=== PATIENT | male | born 1970 | race Caucasian/White ===

== ENCOUNTER 2017-11-16 22:00 | Emergency (ER) | payer SELFPAY ==
[2017-11-16 22:10] VITALS: BP 139/79; PULSE 79; RESP 15; TEMP 36.5; O2SAT 98
--- NOTE | 2017-11-16 22:23 | ED.GENADUL_ITS ---
Discharge Plan Disposition Patient Disposition: HOME Condition: Good Discharge Details Chief Complaint: Laceration Clinical Impression: Laceration of hand, left Primary Care Provider: YAMILETH MARTIN ED Provider: Harish Spence [place] Meds and New Rx's Prescriptions: Continue lisinopril 20 MG tablet 1 tab PO HS RF: 0 aspirin [Aspir-81] 81 MG tablet,delayed release (DR/EC) 1 tab PO DAILY RF: 0 omega-3 fatty acids-fish oil [Fish Oil] 1 EACH capsule 1 cap PO DAILY RF: 0 ibuprofen 800 MG tablet 800 mg PO TID Qty: 30 RF: 0 Discharge Instructions Instructions: Laceration (ED) Additional Instructions: Sutures out in 10-14 days. Keep the wound clean and dry. Apply antibiotic ointment a couple times a day. Watch for signs of infection. Referrals: [facility] [Provider Group] Medical Decision Making Patient with superficial V-shaped laceration to the back of his left hand. No tendon exposure. Normal neurovascular exam of the hand. No need for imaging. Please see procedure note for laceration repair. Patient tolerated well. Tetanus status is updated. Patient discharged home. Wound care instructions given. Sutures out in 10-14 days. Return to ED if signs of infection. HPI General Mode of arrival: ambulatory . Date/Time Provider Initiated Documentation: 11/16/17 22:21 . Limitations to Documentation: no limitations . Information obtained by: patient . HPI Narrative: Patient presents to ED with a laceration to the back of his left hand. Injury occurred while playing basketball with his son. Caught the back of the hand on a bolt that was sticking out of the pole of the basketball hoop was on. He denies other injury. He is right-hand dominant. He does not know when his last tetanus was. He presents for repair. Related Data Home Medications Medication Instructions Recorded Confirmed aspirin [Aspir-81] 1 tab PO DAILY 06/26/13 11/16/17 ibuprofen 800 mg PO TID #30 tablet 06/26/13 11/16/17 lisinopril 1 tab PO HS 06/26/13 11/16/17 omega-3 fatty acids-fish oil [Fish 1 cap PO DAILY 06/26/13 11/16/17 Oil] Previous Rx's Medication Instructions Recorded ibuprofen 800 mg PO TID #30 tablet 06/26/13 Allergies Allergy/AdvReac Type Severity Reaction Status Date / Time venom-honey bee Allergy Swelling/Ed Unverified 11/16/17 22:13 [bee venom (honey bee)] kush General Stated Complaint: Laceration AZIZA: 4 Review of Systems Constitutional Denies weakness Musculoskeletal Denies limited range of motion, Denies numbness and Denies tingling Integumentary/Breasts Reports wounds Neurologic Denies focal weakness, Denies numbness, Denies sensory deficit, Denies tingling and Denies weakness PFSH Medical History HTN (hypertension) (Chronic) Social History Smoking/Tobacco Use Status: Former Tobacco Use Exam Const General: cooperative, healthy appearing, comfortable and no acute distress Orientation: alert and oriented x3 Skin Trauma: laceration (dorsum of left hand; V-shaped laceration about 2 cm in length; superficial through dermis; no tendon exposure) Neuro General: alert, oriented x3 and no focal motor deficits Sensory Exam: no sensory deficits noted Extrem General: normal to inspection and normal exam except as noted Left upper extremity: hand Details: normal capillary refill, neuromotor exam normal, neurosensory exam normal, tendon exam normal, normal ROM of fingers and laceration Course Vital Signs Temperature 97.7 F 11/16/17 22:10 Pulse 79 11/16/17 22:10 Respiratory Rate 15 11/16/17 22:10 Blood Pressure 139/79 11/16/17 22:10 Pulse Oximetry 98 11/16/17 22:10 Temperature 97.7 F 11/16/17 22:10 Temperature Source Temporal Artery Scan 11/16/17 22:10 Pulse 79 11/16/17 22:10 Respiratory Rate 15 11/16/17 22:10 Respiratory Effort Non-Labored 11/16/17 22:16 Blood Pressure 139/79 11/16/17 22:10 Blood Pressure Position Sitting 11/16/17 22:10 Pulse Oximetry 98 11/16/17 22:10 Oxygen Delivery Method Room Air 11/16/17 22:10 Oxygen Flow Rate 0 11/16/17 22:10 Pain Level 3 11/16/17 22:16 Procedures Laceration Laceration 1: Site: hand Side (If applicable): left Size (cm): 2 Description: linear (V-shaped) and clean Depth: simple, single layer Local Anesthetic: Lidocaine 1% Amount of anesthesia used (mL): 1.5 Pre-repair: wound explored and irrigated extensively Skin layer closed with: nylon Size (cm): 4-0 Number of sutures: 6 Technique: simple, interrupted
[2017-11-16] MEDS: Tetanus & Diphtheria Tox,ADULT 0.5 ML VIAL IM (23:19)
[2017-11-16 23:20] VITALS: BP 139/79; PULSE 79; RESP 15; TEMP 36.5; O2SAT 98
== END 2017-11-16 23:23 | disposition home or self-care (01) ==
PROVIDERS: Emergency Provider Emergency Medicine; PCP Nurse Practitioner Adult Health
DX: S61.412A Laceration without foreign body of left hand, initial encounter (principal); W26.8XXA Contact with other sharp object(s), not elsewhere classified, initial encounter; Y93.67 Activity, basketball; I10 Essential (primary) hypertension
CPT/HCPCS: 12001; 90471

== ENCOUNTER 2018-03-29 10:13 | Outpatient (CLI) | payer SELFPAY ==
[2018-03-29 11:53] LABS: COMMENT (LAB VIEW ONLY) 24.18 mg/dL; Microalb ug/mg Crea 15.3 ug/mg Cr
[2018-03-29 11:56] LABS: ALT 30 U/L (12-78); AST 24 U/L (15-37); Albumin 3.9 g/dL (3.4-5.0); Alkaline Phosphatase 86 U/L (46-116); Anion Gap 8.6 mmol/L (3-11); BUN 21 mg/dL (7-18); Bilirubin, Total 0.4 mg/dL (0.2-1.0); CO2 29.4 mmol/L (21.0-32.0); CREATININE 1.18 mg/dL (0.70-1.30); Calcium 9.7 mg/dL (8.5-10.1); Chloride 101 mmol/L (98-107); Cholesterol 196 mg/dL (50-200); Glucose 103 mg/dL (70-100); HDL Cholesterol 60 mg/dL (40-60); LDL CHOLESTEROL 120 mg/dL (<100); Potassium 4.3 mmol/L (3.5-5.1); Sodium 139 mmol/L (136-145); Total Protein 8.1 g/dL (6.4-8.2); Triglyceride 79 mg/dL (30-150)
== END 2018-03-29 10:33 ==
PROVIDERS: PCP Nurse Practitioner Family; Visit Provider Nurse Practitioner Family
DX: I10 Essential (primary) hypertension (principal)
CPT/HCPCS: 36415; 80053; 80061; 83721; 82043; 82570

== ENCOUNTER 2018-05-05 12:44 | Emergency (ER) | payer SELFPAY ==
[2018-05-05 12:50] VITALS: BP 173/102; PULSE 73; RESP 16; TEMP 36.7; O2SAT 97
--- NOTE | 2018-05-05 12:54 | W.ED.GENAD ---
Discharge Plan Disposition Patient Disposition: HOME Condition: Stable Discharge Details Chief Complaint: DentalOral Clinical Impression: Abscess, dental Primary Care Provider: Sagrario Hernandez ED Provider: Anirudh Harmon Home Meds and New Rx's Prescriptions: New penicillin V potassium 500 mg tablet 500 mg PO QID 10 Days Qty: 40 RF: 0 Continued lisinopril 20 MG tablet 30 mg PO HS RF: 0 aspirin [Aspir-81] 81 MG tablet,delayed release (DR/EC) 1 tab PO DAILY RF: 0 omega-3 fatty acids-fish oil [Fish Oil] 1 EACH capsule 1 cap PO DAILY RF: 0 ibuprofen 800 MG tablet 800 mg PO TID Qty: 30 RF: 0 Discharge Instructions Instructions: Dental Abscess (ED) Medical Decision Making PAtient states he started to have right upper anterior molar pain starting last night. Denies dyspnea, stridor or trouble swallowing. On exam he is in no distress speaking in full sentence,s normal posterior pharynx with midline uvula and no submandibular swelling, no pain over hyoid or restricted neck movemetns so doubt rpa, pilot boat captain, ludwigs, epiglotitis. Has numerous dental caries. Has pain with percussion over anterior right upper molar and very small 2mm apical abscess. I recommended bedside drainage but he declined as he wants to f/u with dentist for this. Will start abx, return precautions given Differential Diagnosis abscess, pulpitis HPI General Mode of arrival: ambulatory. Date/Time Provider Initiated Documentation: 05/05/18 12:51. Limitations to Documentation: no limitations. Information obtained by: patient. History of Present Illness 48 year old M presents to the emergency department with the chief complaint of right upper tooth pain, described as moderate, Quality is described as aching, and is localized to the mouth. Patient reports no radiation. Patient started experiencing this day(s) (1) and it has been constant. No relieving factors improve symptom(s), No exacerbating factors reported . Patient notes no other symptoms.. Patient did receive the following treatments prior to arrival, NSAID Related Data Home Medications Medication Instructions Recorded Confirmed aspirin [Aspir-81] 1 tab PO DAILY 06/26/13 05/05/18 ibuprofen 800 mg PO TID #30 tablet 06/26/13 05/05/18 lisinopril 30 mg PO HS 06/26/13 05/05/18 omega-3 fatty acids-fish oil [Fish 1 cap PO DAILY 06/26/13 05/05/18 Oil] penicillin V potassium 500 mg PO QID 10 Days #40 tab 05/05/18 Previous Rx's Medication Instructions Recorded ibuprofen 800 mg PO TID #30 tablet 06/26/13 penicillin V potassium 500 mg PO QID 10 Days #40 tab 05/05/18 Allergies Allergy/AdvReac Type Severity Reaction Status Date / Time venom-honey bee Allergy Swelling/Ed Unverified 05/05/18 12:52 [bee venom (honey bee)] kush General Stated Complaint: DentalOral AZIZA: 4 Review of Systems Review of Systems All systems reviewed & are unremarkable except as noted in HPI and below Constitutional Denies chills and Denies fever(s) ENT Denies change in voice Cardiovascular Denies chest pain and Denies dyspnea Respiratory Denies cough and Denies dyspnea Gastrointestinal Denies abdominal pain, Denies nausea and Denies vomiting Musculoskeletal Denies joint swelling Integumentary/Breasts Denies rash PFSH Medical History HTN (hypertension) (Chronic) Social History Smoking/Tobacco Use Status: Never Drug use: Never Do you feel safe in your relationship?: Yes Exam Const General: no acute distress Orientation: alert HENMT Head: normal to inspection Ears: external ears normal General nose exam: external nose normal Mouth: moist mucous membranes Eyes General: appearance normal, both eyes and all related structures Neck Neck: normal visual inspection Resp Effort & Inspection: normal respiratory effort and able to speak in complete sentences Cardio Rate: regular rate Skin General skin exam: no rashes or lesions noted Neuro General: alert and oriented x3 Extrem General: normal to inspection Psych Mental Status: mental status grossly normal Course Vital Signs Temperature 36.7 C 05/05/18 12:50 Pulse 73 05/05/18 12:50 Respiratory Rate 16 05/05/18 12:50 Blood Pressure 173/102 H 05/05/18 12:50 Pulse Oximetry 97 05/05/18 12:50 Temperature 36.7 C 05/05/18 12:50 Temperature Source Skin 05/05/18 12:50 Pulse 73 05/05/18 12:50 Respiratory Rate 16 05/05/18 12:50 Respiratory Effort Non-Labored 05/05/18 12:50 Blood Pressure 173/102 H 05/05/18 12:50 Blood Pressure Position Sitting 05/05/18 12:50 Pulse Oximetry 97 05/05/18 12:50 Oxygen Delivery Method Room Air 05/05/18 12:50 Oxygen Flow Rate 0 05/05/18 12:50 Pain Level 6 05/05/18 12:53
--- NOTE | 2018-05-05 12:57 | ED.GENADUL_ITS ---
Discharge Plan Disposition Patient Disposition: HOME Condition: Stable Discharge Details Chief Complaint: DentalOral Clinical Impression: Abscess, dental Primary Care Provider: Sagrario Hernandez ED Provider: Anirudh Harmon Home Meds and New Rx's Prescriptions: New penicillin V potassium 500 mg tablet 500 mg PO QID 10 Days Qty: 40 RF: 0 Continued lisinopril 20 MG tablet 30 mg PO HS RF: 0 aspirin [Aspir-81] 81 MG tablet,delayed release (DR/EC) 1 tab PO DAILY RF: 0 omega-3 fatty acids-fish oil [Fish Oil] 1 EACH capsule 1 cap PO DAILY RF: 0 ibuprofen 800 MG tablet 800 mg PO TID Qty: 30 RF: 0 Discharge Instructions Instructions: Dental Abscess (ED) Medical Decision Making PAtient states he started to have right upper anterior molar pain starting last night. Denies dyspnea, stridor or trouble swallowing. On exam he is in no distress speaking in full sentence,s normal posterior pharynx with midline uvula and no submandibular swelling, no pain over hyoid or restricted neck movemetns so doubt rpa, bell captain, ludwigs, epiglotitis. Has numerous dental caries. Has pain with percussion over anterior right upper molar and very small 2mm apical abscess. I recommended bedside drainage but he declined as he wants to f/u with dentist for this. Will start abx, return precautions given Differential Diagnosis abscess, pulpitis HPI General Mode of arrival: ambulatory . Date/Time Provider Initiated Documentation: 05/05/18 12:51 . Limitations to Documentation: no limitations . Information obtained by: patient . History of Present Illness 48 year old M presents to the emergency department with the chief complaint of right upper tooth pain, described as moderate, Quality is described as aching, and is localized to the mouth. Patient reports no radiation. Patient started experiencing this day(s) (1) and it has been constant. No relieving factors improve symptom(s), No exacerbating factors reported . Patient notes no other symptoms.. Patient did receive the following treatments prior to arrival, NSAID Related Data Home Medications Medication Instructions Recorded Confirmed aspirin [Aspir-81] 1 tab PO DAILY 06/26/13 05/05/18 ibuprofen 800 mg PO TID #30 tablet 06/26/13 05/05/18 lisinopril 30 mg PO HS 06/26/13 05/05/18 omega-3 fatty acids-fish oil [Fish 1 cap PO DAILY 06/26/13 05/05/18 Oil] penicillin V potassium 500 mg PO QID 10 Days #40 tab 05/05/18 Previous Rx's Medication Instructions Recorded ibuprofen 800 mg PO TID #30 tablet 06/26/13 penicillin V potassium 500 mg PO QID 10 Days #40 tab 05/05/18 Allergies Allergy/AdvReac Type Severity Reaction Status Date / Time venom-honey bee Allergy Swelling/Ed Unverified 05/05/18 12:52 [bee venom (honey bee)] kush General Stated Complaint: DentalOral AZIZA: 4 Review of Systems Review of Systems All systems reviewed & are unremarkable except as noted in HPI and below Constitutional Denies chills and Denies fever(s) ENT Denies change in voice Cardiovascular Denies chest pain and Denies dyspnea Respiratory Denies cough and Denies dyspnea Gastrointestinal Denies abdominal pain, Denies nausea and Denies vomiting Musculoskeletal Denies joint swelling Integumentary/Breasts Denies rash PFSH Medical History HTN (hypertension) (Chronic) Social History Smoking/Tobacco Use Status: Never Drug use: Never Do you feel safe in your relationship?: Yes Exam Const General: no acute distress Orientation: alert HENMT Head: normal to inspection Ears: external ears normal General nose exam: external nose normal Mouth: moist mucous membranes Eyes General: appearance normal, both eyes and all related structures Neck Neck: normal visual inspection Resp Effort & Inspection: normal respiratory effort and able to speak in complete s entences Cardio Rate: regular rate Skin General skin exam: no rashes or lesions noted Neuro General: alert and oriented x3 Extrem General: normal to inspection Psych Mental Status: mental status grossly normal Course Vital Signs Temperature 36.7 C 05/05/18 12:50 Pulse 73 05/05/18 12:50 Respiratory Rate 16 05/05/18 12:50 Blood Pressure 173/102 H 05/05/18 12:50 Pulse Oximetry 97 05/05/18 12:50 Temperature 36.7 C 05/05/18 12:50 Temperature Source Skin 05/05/18 12:50 Pulse 73 05/05/18 12:50 Respiratory Rate 16 05/05/18 12:50 Respiratory Effort Non-Labored 05/05/18 12:50 Blood Pressure 173/102 H 05/05/18 12:50 Blood Pressure Position Sitting 05/05/18 12:50 Pulse Oximetry 97 05/05/18 12:50 Oxygen Delivery Method Room Air 05/05/18 12:50 Oxygen Flow Rate 0 05/05/18 12:50 Pain Level 6 05/05/18 12:53
== END 2018-05-05 13:05 | disposition home or self-care (01) ==
LOC: ER 13:02
PROVIDERS: Emergency Provider Emergency Medicine; PCP Nurse Practitioner Family
DX: K04.7 Periapical abscess without sinus (principal); I10 Essential (primary) hypertension
CPT/HCPCS: 99283

== ENCOUNTER 2018-10-14 14:38 | Emergency (ER) | payer SELFPAY ==
[2018-10-14 14:49] VITALS: BP 160/90; PULSE 84; RESP 16; TEMP 37.1; O2SAT 100
--- NOTE | 2018-10-14 15:17 | DI.RAD_ITS ---
SYMPTOM/DIAGNOSIS: LOW BACK PAIN LUMBAR SPINE: There is no evidence of an acute fracture. There is deformity of the anterior aspect of L4 vertebral body and prominent osteophytes projecting anteriorly. Spondylolysis is seen at L4 which appears old. There is some narrowing of the L4-5 and L5-S1 disc spaces. 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 Old deformity and prominent osteophyte of the L4 vertebral body.
[2018-10-14] MEDS: Lidocaine 5% Patch 1 PATCH TP ×2 (15:31→16:50)
--- NOTE | 2018-10-14 15:46 | ED.GENADUL_ITS ---
Discharge Plan Disposition Patient Disposition: HOME Condition: Improving Discharge Details Chief Complaint: Nk/Back Pain Clinical Impression: Osteoarthritis of lumbar spine, Acute lumbar back pain Primary Care Provider: Mike Baird ED Provider: Oly Marie Home Meds and New Rx's Prescriptions: New cyclobenzaprine 10 mg tablet 10 mg PO TID PRN (Reason: muscle spasm) Qty: 10 RF: 0 lidocaine [Lidoderm] 5 % adhesive patch,medicated 1 patch TP DAILY PRN (Reason: pain) Qty: 15 RF: 0 Continued lisinopril 20 MG tablet 30 mg PO HS RF: 0 aspirin [Aspir-81] 81 MG tablet,delayed release (DR/EC) 1 tab PO DAILY RF: 0 Fish Oil 1 EACH capsule 1 cap PO DAILY RF: 0 ibuprofen 800 MG tablet 800 mg PO TID Qty: 30 RF: 0 Discharge Instructions Instructions: Low Back Strain (ED) Additional Instructions: Encourage hydration. Encourage frequent ambulation and gentle stretching. Avoid heavy lifting. Tylenol and/or ibuprofen as needed for discomfort. May use the Flexeril as prescribed to help with muscle spasm. The pain is worse in the morning. You may use a heating pad or ice to help with discomfort. Please continue with topical patches to help with discomfort. Please follow-up with primary care in 1 week for reevaluation. Attached is a referral to physical therapy, please call tomorrow to schedule follow-up appointment. Remember when you return to work to lift more with your legs and use good form. If you develop weakness, altered sensation, change in bowel or bladder habits, fever or other new/worsening symptoms please seek care urgently once again. Stand Alone Forms: Physical Therapy Referral, Work Release Referrals: Mike Baird NP [Primary Care Provider] - Discharge Data Discharge Date/Time-TO BE ENTERED AT DEPARTURE: 10/14/18 16:56 Medical Decision Making <Enoc Siegel NP - Last Filed: 10/17/18 21:12> Patient presenting to the emergency department for chief complaint of back pain. Patient states that yesterday he was lifting a heavy fireplace. He reports while lifting this he noticed a instantaneous sharp pain in his low back. Patient has taken some ibuprofen for his pain control. Physical exam shows mild mid sacral tenderness to palpation otherwise normal exam, DTRs equal bilateral, pulses intact. Patient denies any associated symptoms of cauda equina, epidural abscess, or central cord syndrome. Plan to do plain film imaging of the back given sudden sharp onset of pain while lifting. Patient ordered Flexeril, lidocaine patch, and Toradol. Pending results patient refused Flexeril and Toradol but was agreeable to lidocaine patch. <STACY Marie - Last Filed: 10/15/18 00:19> Care transition to myself from Enoc Siegel NP with imaging pending. Imaging reviewed by radiologist: FINDINGS: Vertebrae: There 5 vertebra of lumbar configuration. The sacroiliac joints show no abnormality. There is no scoliosis. The pedicles are intact. There is no acute fracture or subluxation. There is moderate loss of disc height at L4-5 especially anteriorly where there is a defect in the anterior anterior L4 vertebral body with a large anterolateral osteophyte. There is mild discogenic disease at L5-S1. Soft tissues: Normal. IMPRESSION: 1. Moderate discogenic disease L4-5 2. No evidence of acute fracture or subluxation. Reevaluated the patient. His pain is consistent with the above-noted osteoarthritic changes. He is ambulating well but does appear stiff, reports that he is particularly stiff after long periods of sitting. He appears otherwise not. He reports the patch was given to him is greatly beneficial for his discomfort. He continues to decline any further analgesics at this time but agrees to a prescription for muscle relaxer to help with nighttime discomfort. We discussed ambulation and stretching. Advised against heavy lifting, will give a note for work. Will have him follow-up with primary care and give a referral for physical therapy. He was given strict return precautions. All questions and concerns were addressed and he is in agreement this plan. HPI <Enoc Siegel NP - Last Filed: 10/17/18 21:12> General Mode of arrival: ambulatory . Date/Time Provider Initiated Documentation: 10/14/18 15:06 . Limitations to Documentation: no limitations . Information obtained by: patient, family and RN notes reviewed . History of Present Illness 48 year old M presents to the emergency department with the chief complaint of Back pain, injury, described as moderate, with intensity rated at 8. Quality is described as sharp, and is localized to the back. Patient started experiencing this day(s) (1) and it has been constant. Rest improves symptom(s), Movement worsens symptoms . Patient notes no other symptoms.. Patient did receive the following treatments prior to arrival, none Related Data Home Medications Medication Instructions Recorded Confirmed Fish Oil 1 cap PO DAILY 06/26/13 10/14/18 aspirin [Aspir-81] 1 tab PO DAILY 06/26/13 10/14/18 ibuprofen 800 mg PO TID #30 tablet 06/26/13 10/14/18 lisinopril 30 mg PO HS 06/26/13 10/14/18 cyclobenzaprine 10 mg PO TID PRN #10 tab 10/14/18 lidocaine [Lidoderm] 1 patch TP DAILY PRN #15 each 10/14/18 Previous Rx's Medication Instructions Recorded ibuprofen 800 mg PO TID #30 tablet 06/26/13 cyclobenzaprine 10 mg PO TID PRN #10 tab 10/14/18 lidocaine [Lidoderm] 1 patch TP DAILY PRN #15 each 10/14/18 Allergies Allergy/AdvReac Type Severity Reaction Status Date / Time venom-honey bee Allergy Swelling/Ed Unverified 10/14/18 14:51 [bee venom (honey bee)] kush General Stated Complaint: Nk/Back Pain AZIZA: 4 Review of Systems <Enoc Siegel NP - Last Filed: 10/17/18 21:12> Constitutional Denies chills and Denies fever(s) Cardiovascular Denies chest pain and Denies dyspnea on exertion Respiratory Denies cough and Denies dyspnea on exertion Gastrointestinal Denies abdominal pain, Denies change in bowel habits, Denies diarrhea, Denies nausea and Denies vomiting Genitourinary Denies difficulty urinating and Denies urinary incontinence Musculoskeletal Reports as per HPI and Reports back pain Neurologic Denies sensory deficit PFSH <Enoc Siegel NP - Last Filed: 10/17/18 21:12> Medical History HTN (hypertension) (Chronic) Social History Smoking/Tobacco Use Status: Never Drug use: Never Substance use type: does not use Do you feel safe at home: Yes Do you feel safe in your relationship?: Yes Exam <Enoc Siegel NP - Last Filed: 10/17/18 21:12> Const General: cooperative and no acute distress Orientation: alert, awake and oriented x3 Neck Neck: normal visual inspection, full ROM and no meningeal signs Resp Effort & Inspection: normal respiratory effort Auscultation: clear to auscultation bilaterally Cardio Rate: regular rate Rhythm: regular rhythm Heart Sounds: S1 normal and S2 normal Back/Spine/Pelvis Thoracic/Lumbar Spine: pain with thoraco-lumbar ROM, No paraspinal tenderness, thoraco-lumbar ROM limited, No thoracic spinal tenderness, lumbar spinal tenderness (Mid sacral tenderness) and straight leg raise positive Pelvis: no pain with anterior-posterior compression, no pain with lateral compression, no buttock tenderness and no sciatic notch tenderness Neuro General: alert, awake, oriented x3, moves all extremities, normal light touch, pain and propioception and no focal motor deficits DTR's: Rt Patellar: 1+, Lt Patellar: 1+, Rt Ankle: 1+ and Lt Ankle: 1+ Extrem Left lower extremity: normal to inspection, full ROM and normal capillary refill Course <Enoc Siegel NP - Last Filed: 10/17/18 21:12> Vital Signs Temperature 37.1 C 10/14/18 14:49 Pulse 84 10/14/18 14:49 Respiratory Rate 16 10/14/18 14:49 Blood Pressure 160/90 H 10/14/18 14:49 Pulse Oximetry 100 10/14/18 14:49 Temperature 37.1 C 10/14/18 14:49 Temperature Source Temporal Artery Scan 10/14/18 14:49 Pulse 84 10/14/18 14:49 Respiratory Rate 16 10/14/18 14:49 Respiratory Effort Non-Labored 10/14/18 15:36 Blood Pressure 160/90 H 10/14/18 14:49 Pulse Oximetry 100 10/14/18 14:49 Oxygen Delivery Method Room Air 10/14/18 14:49 Oxygen Flow Rate 0 10/14/18 14:49 Pain Level 8 10/14/18 15:37 Sign Out <Enoc Siegel NP - Last Filed: 10/17/18 21:12> Sign Out Data: Sign Out Comment: Pending radiological imaging results patient signed out to STACY Sherwood for final disposition and treatment as required Last updated by Enoc Siegel NP at 10/14/18 15:59
--- NOTE | 2018-10-14 16:13 | DI.VRAD_ITS ---
EXAM: XR Lumbosacral Spine, 4 or 5 Views EXAM DATE/TIME: 10/14/2018 3:18 PM CLINICAL HISTORY: 48 years old, male; Patient HX: Low back pain; Per PT: While lifting object TECHNIQUE: Imaging protocol: XR of the lumbosacral spine, 4 or 5 views. COMPARISON: No relevant prior studies available. FINDINGS: Vertebrae: There 5 vertebra of lumbar configuration. The sacroiliac joints show no abnormality. There is no scoliosis. The pedicles are intact. There is no acute fracture or subluxation. There is moderate loss of disc height at L4-5 especially anteriorly where there is a defect in the anterior anterior L4 vertebral body with a large anterolateral osteophyte. There is mild discogenic disease at L5-S1. Soft tissues: Normal. IMPRESSION: 1. Moderate discogenic disease L4-5 2. No evidence of acute fracture or subluxation. Dictated and Authenticated by: Anirudh Jay MD. Ordering:CRISSY Stubbs MD
[2018-10-14] MEDS: Cyclobenzaprine 10 MG TAB 20 MG PO (16:50)
== END 2018-10-14 16:56 | disposition home or self-care (01) ==
PROVIDERS: Emergency Provider Physician Assistant; PCP Nurse Practitioner Family
DX: M54.5 Low back pain (principal); M47.816 Spondylosis without myelopathy or radiculopathy, lumbar region; X50.3XXA Overexertion from repetitive movements, initial encounter
CPT/HCPCS: 96372; 99284; 72110

== ENCOUNTER 2020-01-25 13:12 | Emergency (ER) | payer SELFPAY ==
[2020-01-25 13:17] VITALS: BP 150/99; PULSE 88; RESP 16; TEMP 37.3; O2SAT 100
--- NOTE | 2020-01-25 13:47 | W.ED.GENAD ---
Discharge Plan Disposition Patient Disposition: HOME Condition: Stable Discharge Details Clinical Impression: Neck swelling, Dental decay Primary Care Provider: Mike Baird ED Provider: Carlos Glez Home Meds and New Rx's Prescriptions: New amoxicillin-pot clavulanate [Augmentin] 875-125 mg tablet 1 tab PO BID Qty: 27 RF: 0 Continued lisinopril 20 MG tablet 30 mg PO HS RF: 0 aspirin [Aspir-81] 81 MG tablet,delayed release (DR/EC) 1 tab PO DAILY RF: 0 Fish Oil 1 EACH capsule 1 cap PO DAILY RF: 0 Discharge Instructions Instructions: Dental Caries (ED) Additional Instructions: It was recommended that you have CT imaging of your neck performed today to assess for acute life-threatening or lifestyle modifying disease. You have refused this recommended diagnostic test. Please take full course of antibiotic as prescribed. Please follow-up with your primary care physician and dentist. Call for an appointment tomorrow. Return to the emergency department at any time for further work-up and treatment as recommended or for any other worsening or new concerning symptoms. Referrals: Mike Baird, [employer] [Primary Care Provider] - Medical Decision Making 49-year-old male here with left anterior lateral neck pain and swelling over the past 4 days. Patient has tender and mildly swollen left anterior neck. No difficulty breathing or change in speech. Patient does have significant dental caries with fractured teeth that appear chronically decayed right lower molars and premolars. I recommended CT of the neck to assess for abscess or malignancy or other etiology that would warrant acute surgical treatment. Patient refused CT imaging. I explained the risk of not having the CT imaging today including lifestyle modifying disease or life-threatening disease would go undiagnosed and untreated. Patient verbalized understanding of my concern and was appreciative of my concern. Patient has decisional making capacity to provide informed refusal. Patient elected to start antibiotic and see if this improves her symptoms. I again reiterated that he may have significant disease but this would not treat but she understands. I encouraged him to return to the ER at any time for further work-up as recommended and to follow-up with his dentist and primary care physician. He was agreeable to a fingerstick blood sugar which was within normal limits. HPI General Mode of arrival: ambulatory. Date/Time Provider Initiated Documentation: 01/25/20 13:17. Limitations to Documentation: no limitations. Information obtained by: patient. HPI Narrative: 49-year-old male presents with chief complaint of left neck inflammation. No symptoms for the past 4 days he has had pain and swelling of his left neck. Symptoms are moderate with no modifiers. He denies trauma. He has no difficulty swallowing or change in speech or difficulty breathing but does note that when he swallows he has some sharp discomfort in his left neck. Denies associated fever. Related Data Home Medications Medication Instructions Recorded Confirmed Fish Oil 1 cap PO DAILY 06/26/13 01/25/20 aspirin [Aspir-81] 1 tab PO DAILY 06/26/13 01/25/20 lisinopril 30 mg PO HS 06/26/13 01/25/20 amoxicillin-pot clavulanate 1 tab PO BID #27 tab 01/25/20 [Augmentin] Previous Rx's Medication Instructions Recorded amoxicillin-pot clavulanate 1 tab PO BID #27 tab 01/25/20 [Augmentin] Allergies Allergy/AdvReac Type Severity Reaction Status Date / Time venom-honey bee Allergy Swelling/Ed Unverified 01/25/20 13:23 [bee venom (honey bee)] kush General Stated Complaint: FacialProb AZIZA: 3 Review of Systems All systems reviewed & are unremarkable except as noted in HPI and below Constitutional Constitutional: Denies fever(s) ENT Ears, Nose, Mouth, and Throat: Reports as per HPI [facility] Medical History HTN (hypertension) Social History Smoking/Tobacco Use Status: Never Smoking risk assessment performed?: Yes Drug use: Never Substance use type: does not use Do you feel safe at home: Yes Do you feel safe in your relationship?: Yes Exam Const General: cooperative and no acute distress HENMT Head: normocephalic and atraumatic Ears: external ears normal, TM normal on the left, EAC's normal, mastoids normal on the left and no periauricular adenopathy General nose exam: external nose normal Face and sinus: normal facial exam Mouth: moist mucous membranes and no audible dysphonia Teeth and gingiva: caries and poor dentition Throat: posterior oropharynx normal, tonsils normal, uvula midline and no peritonsillar masses Eyes Conjunctivae: normal conjunctivae Sclera: normal sclerae Neck Neck: trachea midline and supple Lymphatic: lymphadenopathy (Left anterior cervical) Resp Auscultation: clear to auscultation bilaterally, no rales, no rhonchi and no wheezes Cardio Jugular venous pressure: no JVD Rate: regular rate and not tachycardic Rhythm: regular rhythm Skin General skin exam: no rashes or lesions noted Neuro General: patient alert, patient awake, patient oriented x3 and tone normal Psych Appearance: grossly normal Mental Status: mental status grossly normal Speech and Movement: speech and movement normal Course Vital Signs Vital signs: Vital Signs Temperature 37.3 C 01/25/20 13:17 Pulse 88 01/25/20 13:17 Respiratory Rate 16 01/25/20 13:17 Blood Pressure 150/99 H 01/25/20 13:17 Pulse Oximetry 100 01/25/20 13:17 Temperature 37.3 C 01/25/20 13:17 Temperature Source Temporal Artery Scan 01/25/20 13:17 Pulse 88 01/25/20 13:17 Respiratory Rate 16 01/25/20 13:17 Respiratory Effort Non-Labored 01/25/20 13:22 Blood Pressure 150/99 H 01/25/20 13:17 Blood Pressure Position Sitting 01/25/20 13:17 Pulse Oximetry 100 01/25/20 13:17 Oxygen Delivery Method Room Air 01/25/20 13:17 Oxygen Flow Rate 0 01/25/20 13:17 Pain Level 6 01/25/20 13:17
[2020-01-25] MEDS: Amoxicillin 875/Clav. 125 TAB PO (13:52)
--- NOTE | 2020-01-26 18:07 | PDOC.ERCMPRO ---
- If Service Date Differs Date of service: 01/26/20 Time of Service: 18:07 Care Management Progress Note CM received a referral for [facility] regarding the need for assistance with insurance, as well as follow up dental care. CM sent referral to [facility] for both needs on 01/26/20. Dental care follow up may be determined by health insurance, unless the pt is willing to pay for this care out of pocket.
== END 2020-01-25 13:58 | disposition home or self-care (01) ==
LOC: ER 14:01
PROVIDERS: Emergency Provider Student in an Organized Health Care Education/Training Program; PCP Nurse Practitioner Family
DX: R22.1 Localized swelling, mass and lump, neck (principal); K02.9 Dental caries, unspecified; I10 Essential (primary) hypertension
CPT/HCPCS: 36416; 82962; 99283

== ENCOUNTER 2021-06-20 17:27 | Outpatient (REF) | payer SELFPAY ==
[2021-06-20 22:40] LABS: Anion Gap 10.2 mmol/L (3-11); BUN 20 mg/dL (7-18); CO2 27.8 mmol/L (21.0-32.0); CREATININE 1.3 mg/dL (0.70-1.30); Calcium 9.4 mg/dL (8.5-10.1); Calculated LDL 145 mg/dL (<100); Chloride 103 mmol/L (98-107); Cholesterol 211 mg/dL (<200); Estimated GFR 58.67 (mL/min/1.73m2); Glucose 68 mg/dL (74-106); HDL Cholesterol 55 mg/dL (40-60); Potassium 4.8 mmol/L (3.5-5.1); Sodium 141 mmol/L (136-145); Triglyceride 58 mg/dL (<150)
[2021-06-22 11:00] LABS: Hepatitis C Ab w Rflx HCV PCR Negative (Negative)
[2021-06-22 11:20] LABS: HIV-1/2 Ag & Ab Screen Negative (Negative)
== END 2021-06-20 17:28 | disposition home or self-care (01) ==
LOC: NCHCN 17:27
PROVIDERS: PCP Nurse Practitioner Family; Visit Provider Nurse Practitioner Family
DX: Z00.00 Encounter for general adult medical examination without abnormal findings (principal); I10 Essential (primary) hypertension; Z11.4 Encounter for screening for human immunodeficiency virus [HIV]; Z11.59 Encounter for screening for other viral diseases
CPT/HCPCS: 80048; 80061; 86803; 87389

== ENCOUNTER 2022-11-13 11:38 | Outpatient (REF) | payer SELFPAY ==
[2022-11-13 13:46] LABS: Influenza A PCR Negative (Negative); Influenza B PCR Negative (Negative); RSV PCR Negative (Negative)
[2022-11-13 13:53] LABS: COVID-19 PCR Positive (Negative)
[2022-11-13 13:54] LABS: Source Nasopharynx
== END 2022-11-13 11:39 | disposition home or self-care (01) ==
LOC: LBN 11:38
PROVIDERS: Visit Provider Nurse Practitioner Family
DX: J02.9 Acute pharyngitis, unspecified (principal); R50.9 Fever, unspecified; R53.83 Other fatigue; M79.10 Myalgia, unspecified site; Z20.822 Contact with and (suspected) exposure to COVID-19
CPT/HCPCS: 87637

== ENCOUNTER 2023-10-02 12:10 | Emergency (ER) | payer SELFPAY ==
[2023-10-02 12:12] VITALS: BP 202/125; PULSE 81; RESP 16; TEMP 36.6; O2SAT 97
--- NOTE | 2023-10-02 12:33 | ED.GENADUL_ITS ---
Discharge Plan Disposition Patient Disposition: Home Condition: Stable Discharge Details Clinical Impression: Dental infection ED Provider: Carlin Hurtado Home Meds and New Rx's Prescriptions: New amoxicillin-pot clavulanate 875-125 mg tablet 1 tab PO BID 7 Days Qty: 14 0RF No Action lisinopril 20 MG tablet 30 mg PO HS aspirin [Aspir-81] 81 MG tablet,delayed release (DR/EC) 1 tab PO DAILY Fish Oil 1 EACH capsule 1 cap PO DAILY Discharge Instructions Instructions: Dental Pain Additional Instructions: Please followup with dental specialist as soon as possible; please return to the emergency department for any worsening symptoms HPI General Date/Time Provider Initiated Documentation: 10/02/23 12:12 . HPI Narrative: 53-year-old male history of recurrent dental issues presents with right upper tooth discomfort over the last day after biting into some meat Related Data Home Medications ?Medication ?Instructions ?Recorded ?Confirmed aspirin 81 mg tablet,delayed 1 tab PO DAILY 06/26/13 10/02/23 release (Aspir-) lisinopril 20 mg tablet 30 mg PO HS 06/26/13 10/02/23 omega-3 fatty acids-fish oil 340 1 cap PO DAILY 06/26/13 10/02/23 mg-1,000 mg capsule (Fish Oil) amoxicillin 875 mg-potassium 1 tab PO BID 7 days #14 tabs 10/02/23 clavulanate 125 mg tablet Previous Rx's ?Medication ?Instructions ?Recorded amoxicillin 875 mg-potassium 1 tab PO BID 7 days #14 tabs 10/02/23 clavulanate 125 mg tablet Allergies Allergy/AdvReac Type Severity Reaction Status Date / Time venom-honey bee (bee venom Allergy Swelling/Ed Verified 10/02/23 12:15 (honey bee)) kush General Stated Complaint: DentalOral AZIZA: 4 Exam Narrative Exam Narrative: Speaking full sentences tolerate secretions Mild facial swelling in right maxillary region without fluctuance or crepitus, multiple fractured carious teeth chronic in nature no discrete palpable abscess Soft submental sublingual and submandibular spaces No respiratory distress normal speech no stridor Course Vital Signs Vital signs: Vital Signs Temperature 36.6 C 10/02/23 12:12 Pulse 81 10/02/23 12:12 Respiratory Rate 16 10/02/23 12:12 Blood Pressure 202/125 H 10/02/23 12:12 Pulse Oximetry 97 10/02/23 12:12 Temperature 36.6 C 10/02/23 12:12 Pulse 81 10/02/23 12:12 Respiratory Rate 16 10/02/23 12:12 Respiratory Effort Normal 10/02/23 12:14 Blood Pressure 202/125 H 10/02/23 12:12 Pulse Oximetry 97 10/02/23 12:12 Oxygen Delivery Method Room Air 10/02/23 12:12 Oxygen Flow Rate 0 10/02/23 12:12 Pain Level 8 10/02/23 12:12 Medical Decision Making 53-year-old male presents with dental infection right upper tooth, no evidence of abscess or deep space infection of head or neck, patient is afebrile nontoxic tongue secretions normal voice. Will start on Augmentin, will administer analgesia anti-inflammatory. Home care instructions and strict return precautions given. Patient actively seeking dental follow-up Quality:SDOH Health Related Social Needs: No Data to Display PFSH All Active Problems (Updated 10/02/23 @ 12:38 by Carlin Hurtado MD) Dental infection (Acute) Medical History (Updated 10/02/23 @ 12:38 by Carlin Hurtado MD) HTN (hypertension) Social History Smoking/Tobacco Use Status: Never Smoking risk assessment performed?: Yes Drug use: Never Substance use type: does not use Do you feel safe at home: Yes Do you feel safe in your relationship?: Yes
[2023-10-02] MEDS: Amoxicillin 875/Clav. 125 TAB PO (12:51)
[2023-10-02] MEDS: Ketorolac 10 MG TAB PO (12:51)
[2023-10-02 13:01] VITALS: BP 190/88; PULSE 46; RESP 16; TEMP 36.6; O2SAT 97
== END 2023-10-02 13:41 | disposition home or self-care (01) ==
LOC: ER 12:53
PROVIDERS: Emergency Provider Emergency Medicine; PCP Emergency Medicine
DX: K04.7 Periapical abscess without sinus (principal)
CPT/HCPCS: 99283; 99284

== ENCOUNTER 2024-06-08 16:28 | Emergency (ER) | payer SELFPAY ==
[2024-06-08 16:29] VITALS: BP 155/97; PULSE 110; RESP 18; TEMP 37.6; O2SAT 98
--- NOTE | 2024-06-08 16:30 | DI.RAD_ITS ---
Exam(s) XR CHEST 2V PA LATERAL EXAM: XR CHEST 2V PA LATERAL CLINICAL HISTORY: cough, fever TECHNIQUE: 2D digital imaging was performed. Two views. COMPARISON: CR CHEST 2 VIEWS PA,LAT from 11/29/2013 FINDINGS: HEART: Normal size. Aorta: Not dilated. PULMONARY VASCULATURE: Normal. MEDIASTINUM: Unremarkable. LUNGS: Clear. PLEURAL SPACE: No pleural effusion or pneumothorax. BONE:Unremarkable for age. SOFT TISSUES: Unremarkable. IMPRESSION: No acute abnormality. DATA REPOSITORY: RADIATION DOSE DELIVERED:
[2024-06-08 16:46] VITALS: BP 155/97; PULSE 110; RESP 18; TEMP 37.6; O2SAT 98
[2024-06-08] MEDS: Ibuprofen 600 MG TAB PO (16:50)
--- NOTE | 2024-06-08 17:16 | DI.VRAD_ITS ---
PROCEDURE INFORMATION: Exam: XR Chest Exam date and time: 06/08/2024 5:00 PM Age: 54 years old Clinical indication: Cough and fever TECHNIQUE: Imaging protocol: Radiologic exam of the chest. Views: 2 views. COMPARISON: No relevant prior studies available. FINDINGS: Lungs: No consolidation. Pleural spaces: No pleural effusion. No pneumothorax. Heart/Mediastinum: No cardiomegaly. Bones/joints: Unremarkable. IMPRESSION: No acute findings. Dictated and Authenticated by: Latosha Lockhart MD. Orderin Giorgi Silvestre MD
[2024-06-08 17:28] LABS: COVID-19 PCR Negative (Negative); Influenza A PCR Negative (Negative); Influenza B PCR Negative (Negative); RSV PCR Negative (Negative); Source Nasopharynx
[2024-06-08] MEDS: Doxycycline Hyclate 100 MG, 2 CAPS/BTL PO (17:55)
[2024-06-08] MEDS: predniSONE 20 MG TAB 40 MG PO (17:55)
[2024-06-08] MEDS: Albuterol HFA 8 GM 60 PUFF INH IH (17:56)
[2024-06-08 18:05] VITALS: BP 158/101; PULSE 89; RESP 18; O2SAT 96
--- NOTE | 2024-06-08 18:59 | W.ED.GENAD ---
Discharge Plan Disposition Patient Disposition: Home Condition: Stable Discharge Details Clinical Impression: Bronchitis Primary Care Provider: Carlin Hurtado ED Provider: Nrimala Rand Home Meds and New Rx's Prescriptions: New doxycycline hyclate 100 mg tablet 100 mg PO BID Qty: 8 0RF prednisone 20 mg tablet 40 mg PO ONCE Qty: 8 0RF Continued lisinopril 20 MG tablet 30 mg PO HS aspirin [Aspir-81] 81 MG tablet,delayed release (DR/EC) 1 tab PO DAILY Fish Oil 1 EACH capsule 1 cap PO DAILY Discharge Instructions Instructions: Bronchitis, Adult ED Additional Instructions: albuterol 2 puffs every 4-6 hours as needed for cough, wheeze, shortness of breath take prednisone as prescribed take antibiotic as prescribed follow-up with pcp in 5 days for recheck return earlier with persistent fever, shortness of breath, or should any new or worsening complaints arise Discharge Data Discharge Date/Time-TO BE ENTERED AT DEPARTURE: 06/08/24 18:07 HPI General Date/Time Provider Initiated Documentation: 06/08/24 16:39. HPI Narrative: The patient is a 54-year-old male with upper and lower respiratory symptoms, including a cough for 2 weeks and fever onset 2 days ago. He has been self-medicating with ibuprofen and Tylenol. No shortness of breath, chest pain, recent exposure to sick individuals, skin rashes, lesions, nausea, vomiting, or diarrhea. Maximum temperature reported was 101?F. Related Data Home Medications ?Medication ?Instructions ?Recorded ?Confirmed aspirin 81 mg tablet,delayed 1 tab PO DAILY 06/26/13 06/08/24 release (Aspir-) lisinopril 20 mg tablet 30 mg PO HS 06/26/13 06/08/24 omega-3 fatty acids-fish oil 340 1 cap PO DAILY 06/26/13 06/08/24 mg-1,000 mg capsule (Fish Oil) doxycycline hyclate 100 mg tablet 100 mg PO BID #8 tabs 06/08/24 prednisone 20 mg tablet 40 mg (2 x 20 mg) PO ONCE #8 tabs 06/08/24 Previous Rx's ?Medication ?Instructions ?Recorded doxycycline hyclate 100 mg tablet 100 mg PO BID #8 tabs 06/08/24 prednisone 20 mg tablet 40 mg (2 x 20 mg) PO ONCE #8 tabs 06/08/24 Allergies Allergy/AdvReac Type Severity Reaction Status Date / Time venom-honey bee (bee venom Allergy Swelling/Ed Verified 06/08/24 16:34 (honey bee)) kush General Stated Complaint: RespSymp AZIZA: 4 Exam Narrative Exam Narrative: General Appearance: Alert, oriented, no acute distress. Vital signs: Vitals stable, tachycardic, febrile. HEENT: Within normal limits. Respiratory: Crackles at the base of the right lower lobe. Skin: Warm and dry, no rash. Neurological: Normal. Course Vital Signs Vital signs: Vital Signs Temperature 37.6 C H 06/08/24 16:29 Pulse 110 H 06/08/24 16:29 Respiratory Rate 18 06/08/24 16:29 Blood Pressure 155/97 H 06/08/24 16:29 Pulse Oximetry 98 06/08/24 16:29 Temperature 37.6 C H 06/08/24 16:46 Pulse 89 06/08/24 18:05 Respiratory Rate 18 06/08/24 18:05 Respiratory Effort Normal, Non-Labored 06/08/24 16:51 Respiratory Depth Normal 06/08/24 16:51 Blood Pressure 158/101 H 06/08/24 18:05 Pulse Oximetry 96 06/08/24 18:05 Oxygen Delivery Method Room Air 06/08/24 16:46 Oxygen Flow Rate 0 06/08/24 16:46 Pain Level 0 06/08/24 16:46 Lab/Test Results Lab/Test Results: Laboratory Tests Range/Units 06/08/24 16:49 COVID-19 Source Nasopharynx SARS-CoV-2 (PCR) (Negative) Negative Influenza Type A (PCR) (Negative) Negative Influenza Type B (PCR) (Negative) Negative RSV (PCR) (Negative) Negative Medical Decision Making Imaging Chest x-ray shows a possible right lower lobe infiltrate. Initial Assessment: 54-year-old male with upper and lower respiratory symptoms, cough for 2 weeks, fever for 2 days, no shortness of breath or chest pain, no sick contacts, Tmax 101, alert and oriented, no acute distress, crackles at the base of right lower lobe, vitals stable, tachycardic and febrile. Differential Diagnosis: - Bronchitis vs. developing pneumonia: Treated with doxycycline, albuterol, and prednisone. ED Course: - Chest x-ray shows possible right lower lobe infiltrate. - Administered albuterol and a dose of prednisone. - Return precautions reviewed. - Discharged home in stable condition, ambulatory with steady gait. Final Assessment: Patient treated for bronchitis vs. developing pneumonia with doxycycline, albuterol, and prednisone. Discharged home in stable condition with stable vitals. Clinical Impression: - Bronchitis vs. developing pneumonia Disposition: - Discharge - Follow-Up: Recheck in 48-72 hours. MDM Components Evaluation: - Number of Differential Diagnoses or Management Options: Bronchitis vs. developing pneumonia - Amount and Complexity of Data Reviewed: Chest x-ray - Risk of Complication and Morbidity or Mortality: Moderate risk due to febrile state and possible pneumonia. Quality:[facility] Health Related Social Needs: No Data to Display PFSH All Active Problems (Updated 06/08/24 @ 17:45 by STACY Mcgregor) Bronchitis (Acute) Medical History (Updated 06/08/24 @ 17:45 by STACY Mcgregor) HTN (hypertension) Social History Smoking/Tobacco Use Status: Never Smoking risk assessment performed?: Yes Alcohol Intake: current Alcohol Intake frequency: 3 or more drinks per day Alcohol type: beer Drug use: Never Substance use type: does not use Housing: apartment Do you feel safe at home: Yes Do you feel safe in your relationship?: Yes
== END 2024-06-08 18:07 | disposition home or self-care (01) ==
PROVIDERS: Emergency Provider Physician Assistant; PCP Emergency Medicine
DX: J40 Bronchitis, not specified as acute or chronic (principal); R50.9 Fever, unspecified; I10 Essential (primary) hypertension
CPT/HCPCS: 99283 ×2; 87637; 71046; J7512

== ENCOUNTER 2024-08-17 11:44 | Emergency (ER) | payer MEDICAID, SELFPAY ==
[2024-08-17 11:47] VITALS: BP 160/97; PULSE 93; RESP 18; TEMP 36.6; O2SAT 98
[2024-08-17 11:49] VITALS: BP 160/97; PULSE 93; RESP 18; TEMP 36.6; O2SAT 98
--- NOTE | 2024-08-17 12:00 | W.ED.GENAD ---
Discharge Plan Disposition Patient Disposition: Home Condition: Stable Discharge Details Clinical Impression: Pain, dental Primary Care Provider: Carlin Hurtado ED Provider: Brant Caban Home Meds and New Rx's Prescriptions: New penicillin V potassium 500 mg tablet 500 mg PO QID 5 Days Qty: 20 0RF chlorhexidine gluconate 0.12 % mouthwash 15 ml buccal BID Qty: 1893 0RF Rx Instructions: swish and spit No Action lisinopril 20 MG tablet 30 mg PO HS aspirin [Aspir-81] 81 MG tablet,delayed release (DR/EC) 1 tab PO DAILY Fish Oil 1 EACH capsule 1 cap PO DAILY Discharge Instructions Instructions: Dental Pain (DC) Additional Instructions: Start antibiotics as prescribed Use the mouthwash to help rinse mouth and keep clean as brushing may be difficult with the amount of pain you have Take Motrin or Tylenol as needed for pain Please follow-up with a dentist soon as possible HPI General Date/Time Provider Initiated Documentation: 08/17/24 11:49. Limitations to Documentation: no limitations. Information obtained by: patient. HPI Narrative: 54-year-old gentleman with past medical history of hypertension presents for evaluation of dental pain. He reports that he has ongoing dental infections, but over the last 3 days has been having some worsening pain. Pain localized to the upper left teeth. He reports some mild facial discomfort, but no significant facial swelling. He denies any voice change, difficulty swallowing or painful swallowing. Related Data Home Medications ?Medication ?Instructions ?Recorded ?Confirmed aspirin 81 mg tablet,delayed 1 tab PO DAILY 06/26/13 08/17/24 release (Aspir-) lisinopril 20 mg tablet 30 mg PO HS 06/26/13 08/17/24 omega-3 fatty acids-fish oil 340 1 cap PO DAILY 06/26/13 08/17/24 mg-1,000 mg capsule (Fish Oil) chlorhexidine gluconate 0.12 % 15 ml buccal BID #1,893 mL 08/17/24 mouthwash penicillin V potassium 500 mg 500 mg PO QID 5 days #20 tabs 08/17/24 tablet Previous Rx's ?Medication ?Instructions ?Recorded chlorhexidine gluconate 0.12 % 15 ml buccal BID #1,893 mL 08/17/24 mouthwash penicillin V potassium 500 mg 500 mg PO QID 5 days #20 tabs 08/17/24 tablet Allergies Allergy/AdvReac Type Severity Reaction Status Date / Time venom-honey bee (bee venom Allergy Swelling/Ed Verified 08/17/24 11:49 (honey bee)) kush General Stated Complaint: DentalOral AZIZA: 4 Exam Narrative Exam Narrative: Review of Systems: All systems reviewed & are unremarkable except as noted in HPI and below Well-developed, no acute distress NCAT Mild tenderness over the left zygoma area, no facial swelling Multiple missing and broken teeth, most teeth are broken down to the gumline, there is gingival tenderness over the lateral aspect of the left maxillary teeth, no appreciable abscess noted, floor of mouth is soft, no cervical adenopathy RRR Unlabored respiratory effort Course Vital Signs Vital signs: Vital Signs Temperature 36.6 C 08/17/24 11:47 Pulse 93 H 08/17/24 11:47 Respiratory Rate 18 08/17/24 11:47 Blood Pressure 160/97 H 08/17/24 11:47 Pulse Oximetry 98 08/17/24 11:47 Temperature 36.6 C 08/17/24 11:49 Pulse 93 H 08/17/24 11:49 Respiratory Rate 18 08/17/24 11:49 Blood Pressure 160/97 H 08/17/24 11:49 Pulse Oximetry 98 08/17/24 11:49 Medical Decision Making Emergent evaluation of dental pain. Initial differential includes dental caries, odontogenic abscess, no evidence of Ludwi or other deep space infection. Patient will be started on penicillin and chlorhexidine mouth rinse to help with ongoing dental infection. Return precautions advised. To recommend close follow-up with dentist and a dental list was provided to the patient. PFSH All Active Problems (Updated 08/17/24 @ 11:55 by Brant Caban MD) Pain, dental (Acute) Medical History (Updated 08/17/24 @ 11:55 by Brant Caban MD) HTN (hypertension) Social History Smoking/Tobacco Use Status: Never Smoking risk assessment performed?: Yes Alcohol Intake: current Alcohol Intake frequency: a few times a week Alcohol type: beer Drug use: Never Substance use type: does not use Housing: apartment Do you feel safe at home: Yes Do you feel safe in your relationship?: Yes PAWSS Have you Been Recently Intoxicated or Drunk Within the Last 30 days?: No Have you Ever Experienced Previous Episodes of Alcohol Withdrawal?: No Have you ever Experienced Withdrawal Seizures?: No Have you ever Experienced Delirium Tremens(DT)s?: No Have you ever undergone Alcohol Rehabilitation Treatment (i.e, inpt ot outpatient treatment programs)?: No Have you ever Experienced Blackouts?: No Have you ever Combined Alcohol with other Downers within the last 90 days?: No Have you ever Combined Alcohol with any other Substance of Abuse during the last 90 days?: No Positive Blood Alcohol level on Presentation? [PCS.BAL]: No Evidence of Increased Autonomic Activity (i.e. HR>120, tremor, sweating, agitation, nausea)?: No Result: 0
== END 2024-08-17 12:13 | disposition home or self-care (01) ==
LOC: ER 12:02
PROVIDERS: Emergency Provider Emergency Medicine; PCP Nurse Practitioner Family
DX: R68.84 Jaw pain (principal); K08.89 Other specified disorders of teeth and supporting structures
CPT/HCPCS: 99283 ×2

== ENCOUNTER 2024-12-16 18:48 | Emergency (ER) | payer MEDICAID, SELFPAY ==
[2024-12-16 19:16] VITALS: BP 151/98; PULSE 79; RESP 14; TEMP 37.2; O2SAT 98
[2024-12-16 19:21] VITALS: BP 151/98; PULSE 79; RESP 14; TEMP 37.2; O2SAT 98
--- NOTE | 2024-12-16 19:30 | DI.CT_ITS ---
Exam(s) CT ABDOMEN PELVIS WO EXAM: CT ABDOMEN PELVIS WO CLINICAL HISTORY: Right Flank pain. TECHNIQUE: Imaging Protocol: Axial computed tomography images with coronal and sagittal reformatted images were created and reviewed CONTRAST MATERIAL: Intravenous: none Oral: None COMPARISON: No exams were available for comparison FINDINGS: VISUALIZED LUNG BASES: No nodules nor pleural effusions evident. ABDOMEN: There is no ascites. LIVER: There are no obvious focal hepatic lesions evident of this noninfused study. GALLBLADDER/BILIARY: No obvious gallbladder pathology. CBD is not dilated. PANCREAS: No evidence of pancreatic mass nor dilatation of the pancreatic duct. SPLEEN: Spleen is not enlarged. No obvious intrasplenic lesions. ADRENALS: There are no significant adrenal masses. KIDNEYS:No cysts evident. No solid renal masses. No calculi nor hydronephrosis. Ureters are not dilated. Mild thickening of the urinary bladder wall anteriorly. No intraluminal calculi in the bladder seen. Pelvic ureters are not dilated.. ABDOMINAL AORTA: Abdominal aorta is not enlarged. LYMPH NODES: There is no retroperitoneal nor paraaortic adenopathy. ABDOMINAL WALL: No evidence of significant anterior abdominal wall hernia. There are few shoddy lymph nodes in both inguinal regions noted. GI: There is no evidence of bowel obstruction, free air, nor abscess. PELVIS: LYMPH NODES: There is no intrapelvic nor inguinal adenopathy. GI: No evidence of appendicitis.No evidence of sigmoid diverticulitis. URINARY BLADDER: As above. REPRODUCTIVE: Prostate and seminal vesicles unremarkable. OSSEOUS: No fractures and no significant osseous lesions evident. Limbus vertebra in the anteroinferior aspect of L4 vertebral body noted. There also Modic type sub endplate changes at L4-5 level and vacuum phenomena M seen within the disc space. 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 IMPRESSION: 1. No evidence of acute appendicitis nor diverticulitis. No acute gallbladder pathology. Biliary tree is not dilated. 2. No significant findings in the kidneys. No calculi nor hydronephrosis. 3. Disc space narrowing and other findings as described above at L4-5 level. 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 Report called by myself to ER provider 12/16/2024 at 9:05 p.m. RADIATION DOSE DELIVERED: 853.2mGy.cm Total DLP DATA REPOSITORY: All CT scans at this facility are submitted to the National Radiology Data Registry (NRDR) Dose Index Registry (DIR) with the [employer] ([employer]). RADIATION OPTIMIZATION: All CT scans at this facility use at least one of these dose optimization techniques: automated exposure control; mA and/or kV adjustment per patient size (includes targeted exams where dose is matched to clinical indication); or iterative reconstruction.
--- NOTE | 2024-12-16 19:42 | W.ED.GENAD ---
Discharge Plan Disposition Patient Disposition: Home Condition: Stable Discharge Details Clinical Impression: Flank pain, Degenerative disc disease at L5-S1 level Primary Care Provider: BENJAMIN MUNROE ED Provider: Natalia Simon Home Meds and New Rx's Prescriptions: No Action lisinopril 20 MG tablet 30 mg PO HS aspirin [Aspir-81] 81 MG tablet,delayed release (DR/EC) 1 tab PO DAILY Fish Oil 1 EACH capsule 1 cap PO DAILY chlorhexidine gluconate 0.12 % mouthwash 15 ml buccal BID Qty: 1893 0RF Rx Instructions: swish and spit Discharge Instructions Instructions: Degenerative Disc Disease ED, Flank Pain ED Additional Instructions: No evidence of kidney stones, no evidence of appendicitis. You have disc space narrowing noted at L4-L5 of your spine. Please use the lidocaine patches as directed, increase oral fluids. You may get lidocaine patches over the counter. Please take Tylenol and Ibuprofen every 4-6 hours as needed for pain and swelling. Follow up with PCP in 3-5 days as needed for follow up. Return to the ED for any worsening pain, vomiting, diarrhea, fever, or concerns. Stand Alone Forms: Portal Information Referrals: BENJAMIN MUNROE, [employer] [facility] [employer] [Primary Care Provider, Medicine] - 1 week Referral Note: ER follow up , call for an appointment HPI General Mode of arrival: ambulatory. Date/Time Provider Initiated Documentation: 12/16/24 18:52. Limitations to Documentation: no limitations. Information obtained by: patient, RN notes reviewed and old records reviewed. HPI Narrative: 54-year-old male presents to the ER with a chief complaint of right flank pain which began around 130 this afternoon, reports intermittent comes and goes denies any nausea vomiting diarrhea or abdominal pain associated with this denies any fever. States he is concerned that it may be his appendix after looking up online. Denies any problems urinating or noted any blood in his urine. Denies any heavy lifting or injuries. Related Data Home Medications Medication Instructions Recorded Confirmed aspirin 81 mg tablet,delayed 1 tab PO DAILY 06/26/13 12/16/24 release (Aspir-) lisinopril 20 mg tablet 30 mg PO HS 06/26/13 12/16/24 omega-3 fatty acids-fish oil 340 1 cap PO DAILY 06/26/13 12/16/24 mg-1,000 mg capsule (Fish Oil) chlorhexidine gluconate 0.12 % 15 ml buccal BID #1,893 mL 08/17/24 12/16/24 mouthwash Previous Rx's Medication Instructions Recorded chlorhexidine gluconate 0.12 % 15 ml buccal BID #1,893 mL 08/17/24 mouthwash Allergies Allergy/AdvReac Type Severity Reaction Status Date / Time venom-honey bee (bee venom Allergy Swelling/Ed Verified 12/16/24 19:20 (honey bee)) kush General Stated Complaint: FlankPain AZIZA: 3 Review of Systems All systems reviewed & are unremarkable except as noted in HPI and below Genitourinary Genitourinary: Reports flank pain Exam Narrative Exam Narrative: Constitutional: Alert and oriented x3. Appears stated age. Normal body habitus. Head: Normocephalic, no trauma. Eyes: Pupils PERRL, Red reflex noted, EOM's intact. Eyelids symmetrical without lesions, discharge, or swelling. ENT: Bilateral TM's WNL, External ear normal to inspection, no mastoid TTP, swelling, or erythema, Nasal turbinates WNL, no nasal discharge. Normal dentition, Posterior pharynx WNL, no exudate. Chest: RRR, Normal S1, S2, distal pulses intact. Resp: Lungs clear to auscultation bilaterally, no wheezes, rales, or rhonchi. Abdomen: Soft, non-distended, Normoactive bowel sounds all 4 quads. Musculoskeletal: Normal gait, Moves all 4 extremities without difficulty. Skin: No suspicious rashes or lesions. Capillary refill less than 2 sec. Neurologic: Cranial nerves II-XII intact. Alert and oriented x 3. Motor: No deficits noted. Sensory: Intact bilaterally all 4 extremities. Hematologic/Lymphatic: No ecchymosis, no lymphadenopathy. Course Vital Signs Vital signs: Vital Signs Temperature 37.2 C 12/16/24 19:16 Pulse 79 12/16/24 19:16 Respiratory Rate 14 12/16/24 19:16 Blood Pressure 151/98 H 12/16/24 19:16 Pulse Oximetry 98 12/16/24 19:16 Temperature 37.2 C 12/16/24 19:21 Temperature Source Oral 12/16/24 19:21 Pulse 79 12/16/24 19:21 Respiratory Rate 14 12/16/24 19:21 Blood Pressure 151/98 H 12/16/24 19:21 Blood Pressure Position Sitting 12/16/24 19:21 Pulse Oximetry 98 12/16/24 19:21 Oxygen Delivery Method Room Air 12/16/24 19:21 Oxygen Flow Rate 0 12/16/24 19:16 Pain Level 2 12/16/24 19:16 Medical Decision Making 54-year-old male presents to the ER with a chief complaint of right flank pain which began around 130 this afternoon, reports intermittent comes and goes denies any nausea vomiting diarrhea or abdominal pain associated with this denies any fever. States he is concerned that it may be his appendix after looking up online. Denies any problems urinating or noted any blood in his urine. Denies any heavy lifting or injuries. Urinalysis, CBC CMP ordered. Will consider CT abdomen pelvis rule out kidney stone versus appendix however on exam no pain elicited with palpation Discussed CT results and lab results with patient and family who verbalized understanding. He does have a history of back problems. Did discuss possible Flexeril which patient declined at this time. Of note his BUN and creatinine are slightly elevated BUN 19 creatinine 1.4 but this appears to be somewhat his baseline. Patient refused IV start. This text was generated using [employer] dictation system, please disregard any oddities of phrase or misspellings. Lab Data Lab results reviewed: Yes I reviewed the patient's lab results. Labs: Laboratory Tests Range/Units 12/16/24 12/16/24 20:20 20:40 WBC (4.4-10.8) 10^3/uL 7.13 RBC (4.36-5.78) 10^6/uL 4.52 Hgb (13.5-17.5) g/dL 13.4 L Hct (40.0-50.0) % 40.3 MCV (80-95) fL 89 MCH (27.0-33.0) pg 29.6 MCHC (32.0-36.0) % 33.3 RDW (11.8-14.1) % 12.1 Plt Count (130-400) 10^3/uL 236 MPV (8.0-11.0) fL 11.2 H Immature Gran % % 0.3 Neutrophils % % 61.9 Lymphocytes % % 26.6 Monocytes % % 10.5 Eosinophils % % 0.3 Basophils % % 0.4 Nucleated RBC % (0.0-0.3) % 0.0 Absolute Neutrophils (1.2-6.7) 10^3/uL 4.41 Absolute Lymphocytes (1.2-3.4) 10^3/uL 1.90 Absolute Monocytes (0.1-0.8) 10^3/uL 0.75 Absolute Eosinophils (0.0-0.7) 10^3/uL 0.02 Absolute Basophils (0.0-0.2) 10^3/uL 0.03 Sodium (136-145) mmol/L 135 L Potassium (3.5-5.1) mmol/L 3.7 Chloride (98-107) mmol/L 96 L Carbon Dioxide (21.0-32.0) mmol/L 27.5 Anion Gap (3-11) mmol/L 11.5 H BUN (7-18) mg/dL 19 H Creatinine (0.70-1.30) mg/dL 1.4 H Est GFR (CKD-EPI 2020) (mL/min/1.73m2) 60.47 Glucose (74-106) mg/dL 100 Calcium (8.5-10.1) mg/dL 9.1 Total Bilirubin (0.2-1.0) mg/dL 0.3 AST (15-37) U/L 28 ALT (16-63) U/L 39 Alkaline Phosphatase (46-116) U/L 98 Total Protein (6.4-8.2) g/dL 8.7 H Albumin (3.4-5.0) g/dL 4.2 Urine Color (Yellow) Yellow Urine Clarity (Clear) Clear Urine pH (5-8) 6.0 Ur Specific Koppel (1.005-1.025) 1.015 Urine Protein (Neg-Trace) mg/dL Negative Urine Ketones (Negative) mg/dL Negative Urine Blood (Negative) Negative Urine Nitrite (Negative) Negative Urine Bilirubin (Negative) Negative Urine Urobilinogen (Up to 0.2) mg/dL 0.2 Ur Leukocyte Esterase (Negative) Negative Urine Glucose (Negative) mg/dL Negative PFSH All Active Problems (Updated 12/16/24 @ 21:22 by Natalia Simon NP) Degenerative disc disease at L5-S1 level (Acute) Flank pain (Acute) Medical History (Updated 12/16/24 @ 21:22 by Natalia Simon NP) HTN (hypertension) Social History Smoking/Tobacco Use Status: Never Smoking risk assessment performed?: Yes Alcohol Intake: current Alcohol Intake frequency: 3 or more drinks per day Alcohol type: beer Drug use: Never Substance use type: does not use Housing: apartment Do you feel safe at home: Yes Do you feel safe in your relationship?: Yes PAWSS Have you Been Recently Intoxicated or Drunk Within the Last 30 days?: Yes Have you Ever Experienced Previous Episodes of Alcohol Withdrawal?: No Have you ever Experienced Withdrawal Seizures?: No Have you ever Experienced Delirium Tremens(DT)s?: No Have you ever undergone Alcohol Rehabilitation Treatment (i.e, inpt ot outpatient treatment programs)?: No Have you ever Experienced Blackouts?: No Have you ever Combined Alcohol with other Downers within the last 90 days?: No Have you ever Combined Alcohol with any other Substance of Abuse during the last 90 days?: No Positive Blood Alcohol level on Presentation? [PCS.BAL]: No Evidence of Increased Autonomic Activity (i.e. HR>120, tremor, sweating, agitation, nausea)?: No Result: 1
[2024-12-16 20:29] LABS: Glucose Negative (Negative)
[2024-12-16 20:49] LABS: Abs Immature Grans 0.02 10^3/uL (0.0-0.06); HCT 40.3 % (40.0-50.0); HGB 13.4 g/dL (13.5-17.5); Immature Grans % 0.3 %; MCH 29.6 pg (27.0-33.0); MCHC 33.3 % (32.0-36.0); MCV 89 fL (80-95); MPV 11.2 fL (8.0-11.0); Platelet Count 236 10^3/uL (130-400); RBC 4.52 10^6/uL (4.36-5.78); RDW 12.1 % (11.8-14.1); RDW-SD 39.5 fL; WBC 7.13 10^3/uL (4.4-10.8)
--- NOTE | 2024-12-16 21:08 | DI.VRAD_ITS ---
PROCEDURE INFORMATION: Exam: CT Abdomen And Pelvis Without Contrast Exam date and time: 12/16/2024 8:41 PM Age: 54 years old Clinical indication: Other: Right flank pain TECHNIQUE: Imaging protocol: Computed tomography of the abdomen and pelvis without contrast. COMPARISON: CR XR lumbar spine complete 10/14/2018 3:44 PM FINDINGS: Lungs: A 4 mm nodule is present at the posterior right lung base. The lung bases are otherwise clear. Liver: The liver has a normal appearance. Gallbladder and biliary ducts: The gallbladder is unremarkable. No biliary ductal dilatation. Pancreas: The pancreas demonstrates normal size. No pancreatic ductal dilatation. Spleen: The spleen demonstrates normal size. Adrenal glands: The adrenal glands have a normal appearance. Kidneys and ureters: The kidneys are normal in size. There is mild bilateral perinephric fat stranding. No hydronephrosis. No hydroureter or ureterolithiasis. Stomach and bowel: The bowel demonstrates overall normal caliber and wall thickness. Appendix: The appendix is thin walled. Intraperitoneal space: Unremarkable. No free air. No significant fluid collection. Vasculature: There are scattered atheromatous calcifications throughout the aorta and iliac arteries. Lymph nodes: No enlarged lymph nodes. Urinary bladder: There is wall thickening of the anterior bladder. Trace perivesicular fat stranding is present along the anterior bladder. Reproductive: Unremarkable as visualized. Bones/joints: Bones have a normal appearance. No acute fracture or suspicious bone lesion. Soft tissues: There is a small fat containing left inguinal hernia. IMPRESSION: 1. Mild anterior bladder wall thickening and perivesicular fat stranding which may be associated with acute cystitis. Please correlate with urinalysis. 2. No other acute intra-abdominal findings. 3. Normal appendix. Dictated and Authenticated by: Lyly Mccoy MD. Orderin Alfred Fisher MD
[2024-12-16 21:12] LABS: ALT 39 U/L (16-63); AST 28 U/L (15-37); Albumin 4.2 g/dL (3.4-5.0); Alkaline Phosphatase 98 U/L (46-116); Anion Gap 11.5 mmol/L (3-11); BUN 19 mg/dL (7-18); Bilirubin, Total 0.3 mg/dL (0.2-1.0); CO2 27.5 mmol/L (21.0-32.0); Calcium 9.1 mg/dL (8.5-10.1); Chloride 96 mmol/L (98-107); Glucose 100 mg/dL (74-106); Potassium 3.7 mmol/L (3.5-5.1); Sodium 135 mmol/L (136-145); Total Protein 8.7 g/dL (6.4-8.2)
[2024-12-16 21:30] VITALS: PULSE 88; RESP 16; O2SAT 95
[2024-12-16] MEDS: Lidocaine 5% Patch 1 PATCH TP (21:33)
== END 2024-12-16 21:47 | disposition home or self-care (01) ==
PROVIDERS: Emergency Provider Registered Nurse Emergency; PCP Nurse Practitioner Family
DX: R10.A1 Flank pain, right side (principal); M51.379 Other intervertebral disc degeneration, lumbosacral region without mention of lumbar back pain or lower extremity pain
CPT/HCPCS: 99283; 99284; 36415; 80053; 74176; 81003; 85025